=== PATIENT | male | born 1980 | race Caucasian/White ===

== ENCOUNTER 2017-11-24 10:48 | Emergency (ER) | payer OTHER ==
[~2017-11-24] VITALS: Ht 175.3 cm; Wt 81.7 kg
[2017-11-24] MEDS ORDERED: LOTRIMIN AF12 GM TOP (11:06)
[2017-11-24] MEDS ORDERED: TRIAMCINOLONE A80 G2 TOP (11:06)
[2017-11-24 11:13] VITALS: BP 109/67
== END 2017-11-24 11:14 | disposition home or self-care (01) ==
LOC: M.ERS 10:48
DX: L25.9 Unspecified contact dermatitis, unspecified cause (principal)